=== PATIENT | female | born 1935 | race Caucasian/White ===

== ENCOUNTER 2024-09-09 23:46 | Emergency (ER) | payer OTHER, SELFPAY ==
[2024-09-09 23:50] VITALS: BP 166/64
[2024-09-09 23:59] VITALS: BMI 20.1
[2024-09-10 00:16] VITALS: BP 161/70
--- NOTE | 2024-09-10 00:36 | ED.GENMED ---
History of Present Illness
<NELSON Shetty - Last Filed: 09/10/24 03:42>
General
Chief Complaint: Musculo-Skeletal Complaint
Source: patient and family
Exam Limitations: none
Time Seen by Provider: 09/10/24 00:01
Nursing documentation reviewed up to this point in time: agreed with
History of Present Illness
History of Present Illness:
Patient is a 89 yo F w/ hx of chronic neck pain who presents to the ED in spinal collar for worsening neck pain. 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 She has tried various pain regimes but had success w/ medical marijuana
from 2020 until recently. No imaging since time of sx. Discrepancies in hx between her and family. Pt started to decline about 3 mo ago. She has stopped eating or drinking much at all. reports she has lost 10lbs in 2 mo. She complains of
burning in her mouth that makes her not want to eat. Denies any trouble swallowing. 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 Pt is already on 2 medications that would help reflux. She has started having episodes of shaking and
weakness every morning x4 days. states she will shake and be paralyzed due to pain. Her family states they are 'here to get he stable'.
Review of Systems
<NELSON Shetty - Last Filed: 09/10/24 03:42>
Review of Systems
Constitutional: Reports weight loss; Denies fever or fatigue
EENT: Reports mouth pain
Respiratory: Denies cough or trouble breathing
Cardiac: Denies chest pain or palpitations
ABD/GI: Reports anorexia; Denies abdominal pain, nausea, vomiting, diarrhea or constipated
Musculoskeletal: Reports muscle pain and neck pain
Neurological: Reports weakness; Denies dizzy, headache or numbness
Phy Exam
<NELSON Shetty - Last Filed: 09/10/24 03:42>
General Physical Exam
General Presentation: no apparent distress
General age: appears stated age
General Skin: warm and dry
General Habitus: elderly
General Mental: alert
Cardiovascular Exam
Cardiovascular Exam: regular rate/rhythm, no gallop and no murmur
Pulmonary Exam
Pulmonary Exam: lungs clear and no respiratory distress
Neurological Exam
Neurological Exam: alert, oriented x3, no motor deficits, no sensory deficits and speech normal
Musculoskeletal Exam
Musculoskeletal Exam: neck pain (pain w/ moderate pressure to cervical paraspinal muscles. ROM restricted due to pain. )
Course
<ST DiogenesRI - Last Filed: 09/10/24 03:42>
Orders/Labs/Results
Orders:
Orders
09/10/24 01:36
Electrocardiogram (*1) Urgent
Reason for Study: Fatigue / Weakness
EKG- Treatment ONCE
09/10/24 01:37
CR Cervical Spine 4 Or 5 Vw Urgent
Comment:
Reason For Exam: acute on chronic neck pain
09/10/24 01:50
CRP [C-Reactive Protein] Urgent
Complete Blood Count/With Diff Urgent
Comprehensive Metabolic Panel Urgent
Lactic Acid Urgent
Sed Rate [Erythrocyte Sed Rate] Urgent
Troponin I Urgent
09/10/24 03:36
Tramadol HCl [Ultram] 25 mg PO NOW STA
Abnormal Lab Results
09/10/24
01:50
RBC 3.00 L 10^6/uL
(4.20-5.40)
Hgb 9.6 L g/dL
(12.0-16.0)
Hct 26.6 L %
(37.0-47.0)
MCH 32.0 H pg
(27.0-31.0)
ESR 25 H mm/hour
(0-20)
BUN 23 H mg/dl
(7-17)
Glucose 102 H mg/dl
(70-99)
Total Bilirubin 0.1 L mg/dl
(0.2-1.3)
Alkaline Phosphatase 37 L U/L
(38-126)
Total Protein 5.8 L g/dl
(6.3-8.2)
Albumin 3.4 L g/dl
(3.5-5.0)
09/10/24 01:50
09/10/24 01:50
Vital Signs
Initial and Last Documented VS:
Initial Vital Signs
Temp Pulse Resp BP Pulse Ox
98.3 F 71 18 166/64 96
09/09/24 23:50 09/09/24 23:50 09/09/24 23:50 09/09/24 23:50 09/09/24 23:50
Last Documented Vital Signs
Temp Pulse Resp BP Pulse Ox
98.3 F 58 18 146/59 97
09/09/24 23:50 09/10/24 03:00 09/10/24 01:18 09/10/24 03:00 09/10/24 03:00
Maximilianolt;Kelli Goyal, DO - Last Filed: 09/10/24 03:46>
Orders/Labs/Results
Orders:
Orders
09/10/24 01:36
Electrocardiogram (*1) Urgent
Reason for Study: Fatigue / Weakness
EKG- Treatment ONCE
09/10/24 01:37
CR Cervical Spine 4 Or 5 Vw Urgent
Comment:
Reason For Exam: acute on chronic neck pain
09/10/24 01:50
CRP [C-Reactive Protein] Urgent
Complete Blood Count/With Diff Urgent
Comprehensive Metabolic Panel Urgent
Lactic Acid Urgent
Sed Rate [Erythrocyte Sed Rate] Urgent
Troponin I Urgent
09/10/24 03:36
Tramadol HCl [Ultram] 25 mg PO NOW STA
Abnormal Lab Results
09/10/24
01:50
RBC 3.00 L 10^6/uL
(4.20-5.40)
Hgb 9.6 L g/dL
(12.0-16.0)
Hct 26.6 L %
(37.0-47.0)
MCH 32.0 H pg
(27.0-31.0)
ESR 25 H mm/hour
(0-20)
BUN 23 H mg/dl
(7-17)
Glucose 102 H mg/dl
(70-99)
Total Bilirubin 0.1 L mg/dl
(0.2-1.3)
Alkaline Phosphatase 37 L U/L
(38-126)
Total Protein 5.8 L g/dl
(6.3-8.2)
Albumin 3.4 L g/dl
(3.5-5.0)
09/10/24 01:50
09/10/24 01:50
Vital Signs
Initial and Last Documented VS:
Initial Vital Signs
Temp Pulse Resp BP Pulse Ox
98.3 F 71 18 166/64 96
09/09/24 23:50 09/09/24 23:50 09/09/24 23:50 09/09/24 23:50 09/09/24 23:50
Last Documented Vital Signs
Temp Pulse Resp BP Pulse Ox
98.3 F 58 18 146/59 97
09/09/24 23:50 09/10/24 03:00 09/10/24 01:18 09/10/24 03:00 09/10/24 03:00
Maximilianolt;NELSON Shetty - Last Filed: 09/10/24 03:42>
*Critical Care Note
Total Time (30-74mins, 75-104mins- exclusive of procedures): Not Applicable
<Kelli Goyal DO - Last Filed: 09/10/24 03:46>
*Radiology
Radiology exam reviewed: preliminary read by ED provider (C-spine x-ray is unremarkable.)
*Pulse Oximetry
Patient hypoxic: no
*EKG
Interpreted by ED Provider?: Yes
Interpretation: normal
Comparison EKG: no comparison EKG present
Rate: normal
Rhythm: sinus
[place]: normal axis
Interval: normal interval
QRS Pattern: normal QRS
Ischemia: no ischemia
ED Attending Note
<NELSON Shetty - Last Filed: 09/10/24 03:42>
-
Portions of this chart may have been created with voice recognition software.� Occasional wrong word or��sound alike� substitutions may have occurred due to the inherent limitations of voice recognition software.
<Kelli Goyal DO - Last Filed: 09/10/24 03:46>
ED Attending Note
Patient seen and examined by attending physician: Yes
I performed a history and physical exam of patient and discussed management with resident, I reviewed resident's note and agree with documented findings and plan of care.: Yes
ED Attending Note:
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 She has done well with medical marijuana that was initiated in 2019. Unfortunately over the past few months she
has had increase in her posterior neck pain, more so over the past 4 days with intermittent episodes of generalized shaking accompanied with severe posterior neck pain. She denies radiation of the pain, denies headache, denies fever nor chills.
She has been evaluated by her PCP and according to , blood work has always shown an elevated calcium level but apparently was more elevated in June and thus she has followed up with an wood getter with additional blood work drawn,
results are pending.
She has also been complaining of several month history of mouth burning, has had an unremarkable ENT evaluation recently.
She has had some weight loss perhaps 10 pounds over the past several months but denies difficulty swallowing, no coughing or shortness of breath, no chest pain or palpitations, no abdominal pain, no diarrhea or constipation. She has been taking
Pepto-Bismol which has been helpful for her mouth burning sensation.
With increase in posterior neck pain over the past several weeks again giving her ibuprofen just this past week, 2-3 times per day with marginal improvement but thus far no improvement with these episodes of severe pain accompanied with
generalized shaking that generally last hours. Similar episode tonight prompting ED evaluation.
She has not had a fall.
No difficulty with ambulation.
GENERAL: 89-year-old woman appears her stated age, bright and alert, pleasant, easily communicative and appears in no acute distress.
EYE: pupils equal and reactive. anicteric
NECK: Heating patch located on her posterior neck. The neck is supple, nontender, no meningismus, no significant adenopathy. Minimally restricted rotation bilaterally with pain at limits of rotation.
ENT: posterior pharynx is clear, oral mucosa is minimally dry. The tongue has scant dark brownish to black coating mid to posterior aspect likely related to Pepto-Bismol patient has been taking. TM clear b/l, nares patent.
CARDIAC: Regular rate and rhythm. no murmur.
LUNGS: Clear breath sounds bilaterally, no acute respiratory distress, no wheezes/rales/rhonchi
ABDOMEN: Soft, nondistended, without focal tenderness, no r/g, no cvat. normoactive BS.
BACK: Patient sits up with ease. No midline bony tenderness.
NEUROLOGICAL: Alert and oriented x3, no focal neuro deficits. Motor strength is 5/5 bilaterally. Gross sensation is intact.
SKIN: Warm and dry, normal color, skin intact. No rash.
MUSCULOSKELETAL: No C/C/E. peripheral pulses are full and equal b/l. No palpable tenderness.
PSYCH: Normal and appropriate interaction.
Patient presents with acute on chronic neck pain with episodes of severe pain associated with shaking but not associated with radicular pain nor weakness nor associated fever.
She has been comfortable since arrival to the ED.
Afebrile. Mild systolic hypertension, improving otherwise vital signs within normal limits.
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
Will check labs, inflammatory markers, lactic acid and will check cervical spine x-ray as well as EKG.
Will continue to observe for return of pain.
09/10/2024 0337 AM
Patient remains fairly comfortable while lying Semi-Fraser's. She does admit to increased pain when she sits up, stands up primarily to her posterior neck but continues to have no radicular signs or symptoms, no weakness, no headaches.
Labs are all fairly reassuring with mild anemia but normal white blood cell count, unremarkable inflammatory markers, normal lactic acid, normal calcium, normal renal function.
Cervical spine x-ray is unremarkable. Very mild DJD but otherwise unremarkable.
Recommend trial of low-dose tramadol for as needed pain. Potential side effects discussed. Continue medical marijuana.
Recommend prompt follow-up with PCP and recommend a follow-up with pain management as well; last visit with pain management was 2019.
Return precautions discussed.
Discharge Plan
Departure
Patient Disposition: Home (Routine Discharge)
Date of Disposition: 09/10/24
Time of Disposition: 03:39
Patient with high blood pressure during this ER visit?: No
Condition: Good
Discharge Problem:
acute exacerbation of chronic neck pain
Instructions: Chronic Neck Pain (DC)
Prescriptions:
New
tramadol 25 mg tablet
25 mg PO BIDPRN PRN (Reason: Pain) Qty: 10 0RF
No Action
zolpidem [Ambien] 5 mg Tablet
5 mg PO HS
pantoprazole [Protonix] 40 mg Tablet,Delayed Release (Dr/Ec)
40 mg PO BID
sucralfate 1 gram Tablet
1 g PO BID
metoprolol succinate [Toprol XL] 100 mg Tablet Extended Release 24 Hr
100 mg PO DAILY
Pepto-Bismol 262 mg Tablet
262 mg PO QID
lisinopril 5 mg Tablet
5 mg PO DAILY
Medical Marijuana liquid
PRN (Reason: pain )
Referrals:
Grace Bowles MD [Family Provider] - Next open appointment
Interventions
Interventions:
*Risk Screen - Suicide Last Done: 09/10/24 00:00
*General Assessment Last Done: 09/10/24 00:00
*Neglect/Abuse Screening Last Done: 09/10/24 00:00
*ED COVID-19 Vaccine History Last Done: 09/09/24 23:59
ED-Musculoskeletal Assessment Last Done: 09/10/24 00:01
Discharge Date and Time
Print Language: ALBANIAN
[2024-09-10 01:18] VITALS: BP 144/61
[2024-09-10 01:56] LABS: % Basophils 0.4 % (0-2); % Eosinophils 2.2 % (0-6); % Immature Granulocytes 0.2 % (0-0.5); % Lymphocytes 36.2 % (20.5-51.1); % Monocytes 7.3 % (1.7-9.3); % Neutrophils 53.7 % (42.2-75.2); Absolute Eosinophils 0.1 10^3/uL (0-0.7); Absolute Monocytes 0.4 10^3/uL (0.1-0.6); Hematocrit 26.6 % (37.0-47.0); Hemoglobin 9.6 g/dL (12.0-16.0); Mean Corp Hgb Conc. 36.1 g/dL (33.0-37.0); Mean Corpuscular Volume 88.7 fL (81.0-99.0); Mean Platelet Volume 8.6 fL (7.4-10.4); Nucleated Red Blood Cells % 0 %; Platelet Count 199 10^3/uL (130-400); White Blood Cell Count 5.5 10^3/uL (4.8-10.8)
[2024-09-10 02:09] LABS: Erythrocyte Sed Rate 25 mm/hour (0-20)
[2024-09-10 02:11] LABS: Lactic Acid 1.2 mmol/L (0.7-2.0)
[2024-09-10 02:16] VITALS: BP 157/61
[2024-09-10 02:24] LABS: Troponin I < 0.012 ng/ml
[2024-09-10 02:29] LABS: ALT (SGPT) 31 U/L (0-35); AST (SGOT) 28 U/L (14-36); Albumin 3.4 g/dl (3.5-5.0); Alkaline Phosphatase 37 U/L (38-126); Blood Urea Nitrogen 23 mg/dl (7-17); Calcium 10.1 mg/dl (8.4-10.2); Carbon Dioxide 25 mmol/L (22-30); Chloride 106 mmol/L (98-107); Estimated Creatinine Clearance 39 ml/min; Glucose 102 mg/dl (70-99); Potassium 3.8 mmol/L (3.5-5.1); Sodium 140 mmol/L (135-145); Total Bilirubin 0.1 mg/dl (0.2-1.3); Total Protein 5.8 g/dl (6.3-8.2); eGFR > 60.00
[2024-09-10 02:33] LABS: C-Reactive Protein < 5.00 mg/L (0.0-10.00)
[2024-09-10 03:00] VITALS: BP 146/59
[2024-09-10] MEDS: ULTRAM 25 MG PO (03:48)
== END 2024-09-10 04:00 | disposition home or self-care (01) ==
LOC: EMR 23:46
PROVIDERS: EMERGENCY PHYSICIAN Emergency Medicine; FAMILY PHYSICIAN Internal Medicine Geriatric Medicine
DX: G89.29 Other chronic pain (principal); M54.2 Cervicalgia
CPT/HCPCS: 99285; 72050; 80053; 83605; 84484; 85025; 85652; 86140; 93005